=== PATIENT | male | born 1960 | race Caucasian/White ===

== ENCOUNTER → 2017-05-04 | Outpatient (CLI) | payer OTHER ==
[~2017-05-04] MED LIST: ASPI325T6 PO; CELEBREX 200MG200 MG PO; CLEOCIN HCL300 MG PO; FERROUS SU325 MG/TAB PO; FOLIC ACID 40400 MCG PO; FOLIC ACID0.4 MG PO; NORCO 325 MG-7.1 TAB PO; NORVASC 10MG10 MG PO; PRILOSEC 20MG20 MG PO; PRINIVIL40 MG PO; SYNTHROID0.075 MG/T PO; ULTRAM 50MG TAB50 MG PO; VITAMIN C500 MG PO; XARELTO10 MG PO; XARELTO20 MG PO
== END ==
LOC: COL.VAS 07:48
DX: I36.1 Nonrheumatic tricuspid (valve) insufficiency (principal)

== ENCOUNTER → 2018-11-22 | Outpatient (CLI) | payer OTHER ==
[2018-11-22 11:34] LABS: SYNOVIAL FL. MONONUCLEAR 87.6 % (0-75); SYNOVIAL FLUID RBC 33000 /mm3 (0-0); SYNOVIAL FLUID WBC 363 /mm3 (200-600)
[2018-11-22 12:32] LABS: SYNOVIAL FLUID APPEARANCE CLOUDY; SYNOVIAL FLUID COLOR RED
== END ==
LOC: COL.RAD 09:48
PROVIDERS: Orthopaedic Surgery
DX: M25.512 Pain in left shoulder (principal)

== ENCOUNTER → 2019-02-07 | Outpatient (CLI) | payer OTHER | LOC: COL.RAD 08:05 | DX: M47.817 Spondylosis without myelopathy or radiculopathy, lumbosacral region (principal); M54.42 Lumbago with sciatica, left side; M48.07 Spinal stenosis, lumbosacral region ==

== ENCOUNTER 2021-02-26 05:32 | Day surgery (SDC) | payer BC ==
[~2021-02-26] VITALS: Ht 177.8 cm; Wt 86.2 kg
[2021-02-26 06:02] VITALS: BP 124/74; PULSE 79; TEMP 98.3
[2021-02-26] MEDS ORDERED: K-DUR20 MEQ PO (06:23)
[2021-02-26] MEDS ORDERED: SYNTHROID0.088 MG/T PO (06:24)
[2021-02-26] MEDS ORDERED: NORCO 325 MG-51 TAB PO (10:02)
[2021-02-26 10:42] VITALS: BP 107/87; PULSE 60; TEMP 96.8
[2021-02-26 10:57] VITALS: BP 119/78; PULSE 60; TEMP 97.7
[2021-02-26 11:12] VITALS: BP 117/72; PULSE 62
--- NOTE | 2021-02-26 12:08 | NUR ---
1042: Patient arrived back into [facility]. Report recieved from [facility]enn. Sisters at bedside. Patient reports some abdominal pain noted. No nausea/vomiting. Requesting apple juice and saltines. Sisters at bedside. 1057: Patient tolerated food and drink well. Pain medication given per MAR. Patient reports doing well other than abdominal discomfort, rating pain 5/10. Educated patient on splinting while taking deep breathes. 1110: Went through discharge instructions with patient and sisters. Questions answered. Follow up appointment made. 1112: Vital signs stable. Patient requesting to use restroom. Patient unsteady but got his balance once standing.
--- NOTE | 2021-02-26 13:31 | NUR ---
1120: Patient got dress independently. 1125: Patient escorted to patient entrace. Sisters at side. Patient got into personal vehicle. Patient left in the care of Jhony.
== END 2021-02-26 11:25 | disposition home or self-care (01) ==
LOC: SDCO 05:32
DX: K40.90 Unilateral inguinal hernia, without obstruction or gangrene, not specified as recurrent (principal); K43.9 Ventral hernia without obstruction or gangrene; J45.909 Unspecified asthma, uncomplicated; M19.90 Unspecified osteoarthritis, unspecified site; K21.9 Gastro-esophageal reflux disease without esophagitis; E03.9 Hypothyroidism, unspecified; I10 Essential (primary) hypertension; F41.9 Anxiety disorder, unspecified; Z20.822 Contact with and (suspected) exposure to COVID-19; Z79.890 Hormone replacement therapy; Z87.891 Personal history of nicotine dependence; Z79.899 Other long term (current) drug therapy
CPT/HCPCS: C1781; J1100; J1885; J2405; J2704; J3010; J7120